=== PATIENT | female | born 1955 | race Caucasian/White ===

== ENCOUNTER 2022-01-29 07:41 | Outpatient (CLI) | payer BC, OTHER ==
[~2022-01-29 07:41] MED LIST: DIGO125T PO; DILT120T2 PO; METF-442 PO; Metoprolol Tartrate PO; PANT40SU PO; RIVA20TA PO
== END 2022-01-29 23:59 | disposition home or self-care (01) ==
LOC: LAB 07:41
PROVIDERS: ATTEND Ophthalmology
DX: Z01.812 Encounter for preprocedural laboratory examination (principal); Z20.822 Contact with and (suspected) exposure to COVID-19

== ENCOUNTER 2022-01-31 12:03 | Day surgery (SDC) | payer BC, OTHER ==
[~2022-01-31 12:03] MED LIST changes: +BALANCED SALT IRRIG SOLN COMB1 500 ML, EPINEPHRINE-PF 1:1000 0.5 MG IO ONE
[2022-01-31] MEDS ORDERED: PROPARACAINE 0.5% OPHT DROP 15 ML BOTTLE ONE (12:22)
[2022-01-31] MEDS ORDERED: CIPROFLOXACIN 0.3% OPHT DROP 2.5 ML BOTTLE ONE (12:23)
[2022-01-31] MEDS ORDERED: CYCLOPENTOLATE 1% OPHT DROP 2 ML BOTTLE ONE (12:23)
[2022-01-31] MEDS ORDERED: PHENYLEPHRINE 2.5% OPHT DROP 2 ML BOTTLE ONE (12:24)
[2022-01-31] MEDS ORDERED: TROPICAMIDE 1% OPHT DROP 3 ML BOTTLE ONE (12:25)
[2022-01-31] MEDS ORDERED: KETOROLAC 0.5% OPHT DROP 3 ML BOTTLE ONE (12:25)
[2022-01-31] MEDS ORDERED: LIDOCAINE-MPF 2% 5 ML VIAL ONE (12:35)
[2022-01-31] MEDS ORDERED: BALANCED SALT IRRIG SOLN COMB2 15 ML IRRIG.SOLN ONE (12:35)
[2022-01-31] MEDS ORDERED: BUPIVACAINE PF 0.5% 30 ML VIAL ONE (12:36)
[2022-01-31] MEDS ORDERED: MOXIFLOXACIN HCL 3 ML OPHT DROPS ONE (12:36)
[2022-01-31] MEDS ORDERED: TETRACAINE HCL 0.5% OPHT DROP 2 ML BOTTLE ONE (12:36)
[2022-01-31] MEDS ORDERED: LIDOCAINE HCL-MPF 1% 5 ML VIAL ONE (12:36)
[2022-01-31] MEDS ORDERED: NEO/POLYMYX B/DEXAME OPHT OINT 3.5 GM TUBE ONE (12:36)
[2022-01-31] MEDS ORDERED: HYALURONIDASE,OVINE 200 UNITS/ML VIAL ONE (12:37)
[2022-01-31] MEDS ORDERED: HYALURONATE SODIUM 12.8 MG/0.8 ML DISP.SYRIN ONE (12:40)
[2022-01-31] MEDS ORDERED: HYALURONATE SODIUM 8.5 MG/0.85 ML ONE (12:40)
[2022-01-31] MEDS ORDERED: FENTANYL CITRATE 100 MCG/2 ML AMPUL ONE (13:13)
[2022-01-31] MEDS ORDERED: MIDAZOLAM HCL 2 MG/2 ML VIAL ONE (13:14)
[2022-01-31] MEDS ORDERED: BALANCED SALT IRRIG SOLN COMB1 0 ML ONE (14:08)
[2022-01-31] MEDS ORDERED: ACETYLCHOLINE CHLORIDE 1% OPHT 1 EA KIT ONE (14:10)
== END 2022-01-31 15:50 | disposition home or self-care (01) ==
LOC: DS 12:03
PROVIDERS: ATTEND Ophthalmology
DX: E11.36 Type 2 diabetes mellitus with diabetic cataract (principal); H25.11 Age-related nuclear cataract, right eye; I10 Essential (primary) hypertension; M81.0 Age-related osteoporosis without current pathological fracture; E66.01 Morbid (severe) obesity due to excess calories; K21.9 Gastro-esophageal reflux disease without esophagitis; Z79.84 Long term (current) use of oral hypoglycemic drugs; Z79.899 Other long term (current) drug therapy; Z98.890 Other specified postprocedural states
CPT/HCPCS: 66984; J7321 ×2; J3490 ×3; J0171; J3471; J3010; J7040; V2632; A4663; J2250